=== PATIENT | male | born 1985 | race Caucasian/White ===

== ENCOUNTER 2022-01-05 12:15 | Emergency (ER) | payer MEDICAID ==
[~2022-01-05] VITALS: Ht 170.2 cm; Wt 108.0 kg
[2022-01-05] MEDS ORDERED: FAMOTIDINE 10 MG/ML 2 ML VIAL IVP ONE (12:30)
[2022-01-05] MEDS ORDERED: MethylPREDNISolone SOD SUCC 125 MG/2 ML VIAL IVP ONE (12:30)
[2022-01-05] MEDS ORDERED: DiphenhydrAMINE HCL 50 MG/ML VIAL IVP ONE (12:30)
[2022-01-05] MEDS ORDERED: EPIN0.3P3 IM (13:21)
[2022-01-05] MEDS ORDERED: DIPH25CA85 PO (13:21)
[2022-01-05] MEDS ORDERED: PRED-554 PO (13:21)
[2022-01-05 14:06] VITALS: BP 130/78
== END 2022-01-05 14:09 | disposition home or self-care (01) ==
LOC: EMS 12:21
DX: T63.441A Toxic effect of venom of bees, accidental (unintentional), initial encounter (principal); F17.210 Nicotine dependence, cigarettes, uncomplicated; Z88.0 Allergy status to penicillin; Z91.030 Bee allergy status; Y92.89 Other specified places as the place of occurrence of the external cause; Y93.89 Activity, other specified; Y99.8 Other external cause status
CPT/HCPCS: 99284; 96374; 96375; 93005; J1200; J3490; J2930

== ENCOUNTER 2024-06-24 13:40 | Emergency (ER) | payer MEDICAID, OTHER ==
[~2024-06-24] VITALS: Ht 165.1 cm; Wt 120.0 kg
[~2024-06-24 13:40] MED LIST: DIPH25CA85 PO; EPIN0.3P3 IM; PRED-554 PO
[2024-06-24 13:43] VITALS: TEMP 98.2
[2024-06-24] MEDS: PredniSONE 20 MG TABLET PO ONE (15:53)
[2024-06-24] MEDS: CYCLOBENZAPRINE HCL 10 MG TABLET PO ONE (15:53)
[2024-06-24] MEDS ORDERED: TRAM50TA5 PO (16:47)
[2024-06-24] MEDS ORDERED: IBUP-1492 PO (16:47)
[2024-06-24] MEDS: HYDROCODONE/ACETAMINOPHEN 5-325 MG TABLET PO ONE (17:05)
[2024-06-24 17:19] VITALS: BP 131/74; PULSE 71; RESP 18; O2SAT 99
== END 2024-06-24 17:23 | disposition home or self-care (01) ==
LOC: EMS 13:40
DX: S46.911A Strain of unspecified muscle, fascia and tendon at shoulder and upper arm level, right arm, initial encounter (principal); F17.210 Nicotine dependence, cigarettes, uncomplicated; Z91.030 Bee allergy status; Z88.0 Allergy status to penicillin; Z79.52 Long term (current) use of systemic steroids; X50.3XXA Overexertion from repetitive movements, initial encounter; Y93.89 Activity, other specified; Y92.89 Other specified places as the place of occurrence of the external cause; Y99.8 Other external cause status
CPT/HCPCS: 99284; 73030; J7512